=== PATIENT | female | born 1990 | race Caucasian/White ===

== ENCOUNTER 2017-12-25 10:18 | Emergency (ER) | payer OTHER ==
[2017-12-25 10:31] VITALS: BP 115/74; PULSE 90; TEMP 97.9; BMI 22.7
--- NOTE | 2017-12-25 10:34 | PDOC ---
History of Present Illness - General Chief Complaint: Injury Stated Complaint: FALL/INJURY Time Seen by Provider: 12/25/17 10:31 History Source: Patient Exam Limitations: No Limitations - History of Present Illness Initial Comments: 12/25/17 11:59 Patient is a 27-year-old female with no past medical history, who presents to the emergency department today with right foot pain after falling down the steps yesterday at work. Patient states that she slipped down 2 stairs. While she was trying to catch herself, she felt her foot roll under her. Admits to swelling and pain to her right foot. Denies fevers, chills, weakness in the extremity, numbness and tingling to the extremity. Past History - Travel Traveled outside of the country in the last 30 days: No Close contact w/someone who was outside of country & ill: No - Past Medical History Allergies/Adverse Reactions: Allergies Allergy/AdvReac Type Severity Reaction Status Date / Time No Known Allergies Allergy Verified 12/25/17 10:27 Home Medications: Ambulatory Orders NK [No Known Home Medication] 12/25/17 COPD: No - Suicide/Smoking/Psychosocial Hx Smoking History: Current every day smoker Information on smoking cessation initiated: No Review of Systems - Review of Systems Able to Perform ROS?: Yes Comments:: 12/25/17 10:33 CONSTITUTIONAL: Absent: fever, chills, diaphoresis, generalized weakness, malaise, loss of appetite HEENT: Absent: rhinorrhea, nasal congestion, throat pain, throat swelling, difficulty swallowing, mouth swelling, ear pain, eye pain, visual Changes MUSCULOSKELETAL: Present: R foot pain and swelling Absent: myalgia SKIN: Absent: rash, itching, pallor NEUROLOGIC: Absent: headache, focal weakness or paresthesias, dizziness, unsteady gait, seizure, mental status changes, bladder or bowel incontinence PSYCHIATRIC: Absent: anxiety, depression, suicidal or homicidal ideation, hallucinations. Is the patient limited Welsh proficient: No *Physical Exam - Vital Signs Last Vital Signs Temp Pulse Resp BP Pulse Ox 97.9 F 90 16 115/74 98 12/25/17 10:25 12/25/17 10:25 12/25/17 10:25 12/25/17 10:25 12/25/17 10:25 - Physical Exam Comments: 12/25/17 10:33 GENERAL: Well developed, well nourished. Awake and alert. No acute distress. MUSCULOSKELETAL TTP of the lateral R foot along the 5th metatarsal with associated swelling. Pain with eversion of R ankle. (-) squeeze test. Normal range of motion at all joints. No bony deformities or tenderness. No CVA tenderness. EXTREMITIES: No cyanosis. No clubbing. No edema. No calf tenderness. SKIN: Bruising to the R lateral foot. Warm and dry. Normal capillary refill. No rashes. No jaundice. NEUROLOGICAL: Alert, awake, appropriate. Cranial nerves 2-12 intact. No deficits to light touch and temperature in face, upper extremities and lower extremities. No motor deficits in the in face, upper extremities and lower extremities. Normoreflexic in the upper and lower extremities. Normal speech. Toes are down- going bilaterally. Gait is normal without ataxia. PSYCHIATRIC: Cooperative. Good eye contact. Appropriate mood and affect. Medical Decision Making - Medical Decision Making 12/25/17 12:04 Patient is a 27-year-old female with no past medical history, who presents to the emergency department today with right foot pain after falling down the steps yesterday at work. -TTP along the 5th R metatarsal with associated bruising and swelling. PMS intact in the R foot -X-ray of foot and ankle is negative for fracture. No fracture at the base of the 5th metatarsal -Most likely a sprain -MANE wrap and supportive treatment given with ortho follow up -DC home -I discussed the physical exam findings, ancillary test results and final diagnoses with the patient. I answered all of the patient's questions. The patient was satisfied with the care received and felt comfortable with the discharge plan and treatment plan. The Patient agrees to follow up with the primary care physician/specialist within 24-72 hours. Return precautions were given. *DC/Admit/Observation/Transfer Diagnosis at time of Disposition: Right foot sprain Qualifiers: Encounter type: initial encounter Qualified Code(s): S93.601A - Unspecified sprain of right foot, initial encounter - Discharge Dispostion Disposition: HOME Condition at time of disposition: Stable Decision to Admit order: No - Referrals Referrals: Salty Lew MD [Staff Physician] - - Patient Instructions Printed Discharge Instructions: DI for Foot Sprain Additional Instructions: You sprained your foot. Your x-ray was negative for broken bones. Please keep your ankle elevated while at rest above the level of your heart to reduce swelling. You may take Motrin/ibuprofen 600 mg every 6 hours to help reduce pain and swelling. Please ice the area for 20 minute intervals at least 5 times a day to help reduce swelling. Please wear the Mane wrap. Please follow-up with orthopedics in 1 week if your symptoms are not improving. Return to the emergency department if you have worsening pain, or unable to walk , numbness and tingling of the foot, or had any changes in your symptoms. - Post Discharge Activity Forms/Work/School Notes: Back to Work
== END 2017-12-25 12:15 | disposition home or self-care (01) ==
LOC: JERFT 10:18
DX: S93.601A Unspecified sprain of right foot, initial encounter (principal); W10.9XXA Fall (on) (from) unspecified stairs and steps, initial encounter; Y93.89 Activity, other specified; Y92.89 Other specified places as the place of occurrence of the external cause; Y99.0 Civilian activity done for income or pay; F17.210 Nicotine dependence, cigarettes, uncomplicated
CPT/HCPCS: 73610-TC-RT-FY; 73630-TC-RT-FY; 84703; 99281-25

== ENCOUNTER 2018-05-19 09:47 | Emergency (ER) | payer SELFPAY ==
[2018-05-19 10:02] VITALS: BMI 21.1
--- NOTE | 2018-05-19 10:45 | PDOC ---
History of Present Illness <Gissell Mari - Last Filed: 05/19/18 15:00> - History of Present Illness Initial Comments: 05/19/18 11:02 Ms. Bocanegra is a 27 yo female w/ pmh of gastritis who presents for evaluation of 1 week history of abdominal pain with nausea, vomiting, and diarrhea. Patient reports pain has been consistent with her normal gastritis pain however she does not typically have vomiting or diarrhea associated with it. Patient presented to Urgent care on and was given zofran for nausea control which she reported helped her vomiting however she continued to have diarrhea until Saturday. Last BM was on Saturday. Patient also reports decreased appetite since this time. The patient denies chest pain, shortness of breath, headache and dizziness. Denies fever and chills. Denies dysuria, frequency, urgency and hematuria. <Willy Cabral - Last Filed: 05/19/18 17:44> - General Chief Complaint: Pain, Acute Stated Complaint: ABD PAIN Time Seen by Provider: 05/19/18 10:45 Past History <Gissell Mari - Last Filed: 05/19/18 15:00> - Past Medical History COPD: No - Suicide/Smoking/Psychosocial Hx Smoking History: Former smoker Have you smoked in the past 12 months: No Information on smoking cessation initiated: No Hx Alcohol Use: No Drug/Substance Use Hx: No <Willy Cabral - Last Filed: 05/19/18 17:44> - Past Medical History Allergies/Adverse Reactions: Allergies Allergy/AdvReac Type Severity Reaction Status Date / Time No Known Allergies Allergy Verified 12/25/17 10:27 Home Medications: Ambulatory Orders Ciprofloxacin [Cipro -] 500 mg PO Q12H #6 tablet 05/19/18 Metoclopramide HCl [Reglan] 10 mg PO TID PRN #9 tablet 05/19/18 Ondansetron [Zofran -] 4 mg PO PRN 05/19/18 Review of Systems - Review of Systems Comments:: 05/19/18 11:47 GENERAL/CONSTITUTIONAL: No fever or chills. No weakness. HEAD, EYES, EARS, NOSE AND THROAT: No change in vision. No ear pain or discharge. No sore throat. CARDIOVASCULAR: No chest pain or shortness of breath RESPIRATORY: No cough, wheezing, or hemoptysis. GASTROINTESTINAL: +Upper abdominal pain w/ N/V/D as described. GENITOURINARY: No dysuria, frequency, or change in urination. MUSCULOSKELETAL: No joint or muscle swelling or pain. No neck or back pain. SKIN: No rash NEUROLOGIC: No headache, vertigo, loss of consciousness, or change in strength/ sensation. ENDOCRINE: No increased thirst. No abnormal weight change HEMATOLOGIC/LYMPHATIC: No anemia, easy bleeding, or history of blood clots. ALLERGIC/IMMUNOLOGIC: No hives or skin allergy. <Willy Cabral - Last Filed: 05/19/18 17:44> *Physical Exam - Vital Signs Last Vital Signs Temp Pulse Resp BP Pulse Ox 97.9 F 102 H 20 142/71 100 05/19/18 10:00 05/19/18 10:00 05/19/18 10:00 05/19/18 10:00 05/19/18 10:00 <Gissell Mair - Last Filed: 05/19/18 15:00> - Vital Signs Last Vital Signs Temp Pulse Resp BP Pulse Ox 97.9 F 102 H 20 142/71 100 05/19/18 10:00 05/19/18 10:00 05/19/18 10:00 05/19/18 10:00 05/19/18 10:00 - Physical Exam Comments: 05/19/18 11:48 GENERAL: Awake, alert, and fully oriented, in no acute distress HEAD: No signs of trauma, normocephalic, atraumatic EYES: PERRLA, EOMI, sclera anicteric, conjunctiva clear ENT: Auricles normal inspection, hearing grossly normal, nares patent, oropharynx clear without exudates. Moist mucosa NECK: Normal ROM, supple, no lymphadenopathy, JVD, or masses LUNGS: No distress, speaks full sentences, clear to auscultation bilaterally HEART: Regular rate and rhythm, normal S1 and S2, no murmurs, rubs or gallops, peripheral pulses normal and equal bilaterally. ABDOMEN: +Epigastric and RLQ w/ LLQ rebound TTP. Soft, Normoactive bowel sounds. No guarding, no rebound. No masses EXTREMITIES: Normal inspection, Normal range of motion, no edema. No clubbing or cyanosis. NEUROLOGICAL: Cranial nerves II through XII grossly intact. Normal speech, normal gait, no focal sensorimotor deficits SKIN: Warm, Dry, normal turgor, no rashes or lesions noted. <Willy Cabral - Last Filed: 05/19/18 17:44> Moderate Sedation - Procedure Monitoring Vital Signs: Procedure Monitoring Vital Signs Temperature 97.9 F 05/19/18 10:00 Pulse Rate 102 H 05/19/18 10:00 Respiratory Rate 20 05/19/18 10:00 Blood Pressure 142/71 05/19/18 10:00 O2 Sat by Pulse Oximetry (%) 100 05/19/18 10:00 <Gissell Mari - Last Filed: 05/19/18 15:00> - Procedure Monitoring Vital Signs: Procedure Monitoring Vital Signs Temperature 97.9 F 05/19/18 10:00 Pulse Rate 102 H 05/19/18 10:00 Respiratory Rate 20 05/19/18 10:00 Blood Pressure 142/71 05/19/18 10:00 O2 Sat by Pulse Oximetry (%) 100 05/19/18 10:00 <Willy Cabral - Last Filed: 05/19/18 17:44> ED Treatment Course - LABORATORY CBC & Chemistry Diagram: 05/19/18 11:19 05/19/18 11:19 - ADDITIONAL ORDERS Additional order review: Laboratory Results 05/19/18 05/19/18 11:40 11:19 Sodium 140 Potassium 4.3 Chloride 111 H Carbon Dioxide 23 Anion Gap 6 L BUN 12 Creatinine 0.7 Creat Clearance w eGFR > 60 Random Glucose 86 Calcium 8.8 Total Bilirubin 0.4 AST 18 ALT 20 Alkaline Phosphatase 61 Total Protein 8.0 Albumin 4.1 Lipase 314 Urine Color Yellow Urine Appearance Clear Urine pH 7.5 Ur Specific [place] 1.015 Urine Protein Negative Urine Glucose (UA) Negative Urine Ketones Negative Urine Blood Negative Urine Nitrite Negative Urine Bilirubin Negative Urine Urobilinogen 0.2 Ur Leukocyte Esterase Negative Urine HCG, Qual Negative 05/19/18 11:19 RBC 3.97 MCV 99.1 H MCHC 34.2 RDW 14.3 MPV 9.9 Neutrophils % 75.7 Lymphocytes % 18.5 Monocytes % 4.7 Eosinophils % 0.4 Basophils % 0.7 - Medications Given in the ED: ED Medications Discontinued Medications Generic Name Dose Route Start Last Admin Trade Name Freq PRN Reason Stop Dose Admin Famotidine/Sodium Chloride 20 mg in 50 mls @ 100 mls/hr 05/19/18 11:11 11:30 Pepcid 20 Mg Premixed Ivpb - IVPB 05/19/18 11:40 100 mls/hr ONCE ONE Administration Sodium Chloride 1,000 mls @ 1,000 mls/hr 05/19/18 11:11 05/19/18 11:30 Normal Saline - IV 05/19/18 12:10 1,000 mls/hr ASDIR STA Administration <Gissell Mari - Last Filed: 05/19/18 15:00> - LABORATORY CBC & Chemistry Diagram: 05/19/18 11:19 05/19/18 11:19 <Willy Cabral - Last Filed: 05/19/18 17:44> Medical Decision Making - Medical Decision Making 05/19/18 17:38 Ms. Bocanegra is a 27 yo female w/ pmh as described who presents for evaluation of symptoms concerning for SBO vs. colon cancer vs. viral gastritis. Patient labs grossly wnl as below. Patient evaluated with CT abdomen/pelvis with IV/Oral contrast with no concerning findings. Patient symptoms improved with reglan and fluids. Discharging patient to home w/ Rx for cipro and reglan for prophylaxis. Discussed return precautions and patient will follow-up as needed. No concern for acute process at this time. Laboratory Results - last 24 hr 05/19/18 05/19/18 05/19/18 11:19 11:19 11:40 WBC 8.2 RBC 3.97 Hgb 13.5 Hct 39.3 MCV 99.1 H MCH 33.9 H MCHC 34.2 RDW 14.3 Plt Count 249 MPV 9.9 Absolute Neuts (auto) 6.2 Neutrophils % 75.7 Lymphocytes % 18.5 Monocytes % 4.7 Eosinophils % 0.4 Basophils % 0.7 Nucleated RBC % 0 Sodium 140 Potassium 4.3 Chloride 111 H Carbon Dioxide 23 Anion Gap 6 L BUN 12 Creatinine 0.7 Creat Clearance w eGFR > 60 Random Glucose 86 Calcium 8.8 Total Bilirubin 0.4 AST 18 ALT 20 Alkaline Phosphatase 61 Total Protein 8.0 Albumin 4.1 Lipase 314 Urine Color Yellow Urine Appearance Clear Urine pH 7.5 Ur Specific [place] 1.015 Urine Protein Negative Urine Glucose (UA) Negative Urine Ketones Negative Urine Blood Negative Urine Nitrite Negative Urine Bilirubin Negative Urine Urobilinogen 0.2 Ur Leukocyte Esterase Negative Urine HCG, Qual Negative <Willy Cabral - Last Filed: 05/19/18 17:44> *DC/Admit/Observation/Transfer <Gissell Mari - Last Filed: 05/19/18 15:00> <WyattmarianneWilly - Last Filed: 05/19/18 17:44> Diagnosis at time of Disposition: Abdominal pain Qualifiers: Abdominal location: unspecified location Qualified Code(s): R10.9 - Unspecified abdominal pain - Discharge Dispostion Disposition: HOME - Prescriptions Prescriptions: Ciprofloxacin [Cipro -] 500 mg PO Q12H #6 tablet Metoclopramide HCl [Reglan] 10 mg PO TID PRN #9 tablet PRN Reason: Nausea - Patient Instructions Printed Discharge Instructions: DI for Abdominal Pain-Adult Additional Instructions: You were evaluated today in the ER for your abdominal pain. We evaluated you with labs as well as CT scan with no concerning findings. We sent antibiotics and nausea medication to your pharmacy. Take all medications as proscribed. Please follow-up with primary care provider in 1-2 days for further evaluation. Return to ER if any failure of symptoms to improve, fever, chills, increased pain, or other concerning developments. We hope you feel better soon.
[2018-05-19] MEDS ORDERED: FAMOTIDINE 20 MG/50 ML IVPB 20 MG/50 ML MG IVPB ONE ×2 (11:11→11:22)
[2018-05-19] MEDS ORDERED: SODIUM CHLORIDE 1,000 ML IV STA (11:11)
[2018-05-19 11:52] LABS: BASO % 0.7 % (0-2.0); EOS % 0.4 % (0-4.5); HEMATOCRIT 39.3 % (32.4-45.2); HEMOGLOBIN 13.5 GM/dL (10.7-15.3); LYMPH % 18.5 % (8-40); MCH 33.9 pg (25.7-33.7); MCHC 34.2 g/dl (32.0-36.0); MEAN CELL VOLUME 99.1 fl (80-96); MEAN PLT VOLUME 9.9 fl (7.5-11.1); MONO % 4.7 % (3.8-10.2); NEUT % 75.7 % (42.8-82.8); PLATELET COUNT 249 K/MM3 (134-434); RBC 3.97 M/mm3 (3.60-5.2); RDW 14.3 % (11.6-15.6); WHITE BLOOD COUNT 8.2 K/mm3 (4.0-10.0)
[2018-05-19 12:01] LABS: HCG,QUALITATIVE URINE Negative
[2018-05-19 12:36] LABS: ALBUMIN 4.1 g/dl (3.4-5.0); ALK PHOS 61 U/L (45-117); ANION GAP 6 MMOL/L (8-16); BILIRUBIN,TOTAL 0.4 mg/dL (0.2-1); BLOOD UREA NITROGEN 12 mg/dL (7-18); CALCIUM 8.8 mg/dL (8.5-10.1); CHLORIDE 111 mmol/L (98-107); CO2 23 mmol/L (21-32); CREATININE 0.7 mg/dL (0.55-1.3); GLUCOSE,RANDOM 86 mg/dL (74-106); LIPASE 314 U/L (73-393); POTASSIUM 4.3 mmol/L (3.5-5.1); SGOT/AST 18 U/L (15-37); SGPT/ALT 20 U/L (13-61); SODIUM 140 mmol/L (136-145)
--- NOTE | 2018-05-19 12:43 | PDOC ---
Attending Attestation - Resident Resident Name: GarryfitomarianneRazWilly - ED Attending Attestation I have performed the following: I have examined & evaluated the patient, The case was reviewed & discussed with the resident, I agree w/resident's findings & plan - HPI HPI: 05/19/18 15:59 27 YOF with h/o gastritis p/w 1 week of n/v/d. non bloody. no recent abx use +fam history of colon ca in mother. She get yearly colonoscopy - last one normal and EGD with +gastritis. 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 she admits to eating eggs prior to onset of symptoms but no other sick contacts with similar sx. 05/19/18 15:59 05/19/18 16:01 - Physicial Exam PE: 05/19/18 15:59 NAD, well appearing, PERRL, EOMI, MMM, nl conjunctiva, anicteric; neck supple. lungs clear, RRR, abdomen soft diffuse TTP particularly over epigastrium; no rebound or guarding. no CVAT. CUMMINS x4, no focal neuro deficits. No peripheral edema. normal color for ethnicity, WWP. - Medical Decision Making 05/19/18 12:43 See HPI for details DDx abdominal pain: Renal colic, biliary colic, metabolic/electrolyte derangements. GERD, PUD, esophageal spasm, pancreatitis, hepatitis, constipation , colitis, gastroenteritis, food poisoning cholecystitis, UTI, pyelonephritis, ileus, SBO, medication side effect, hernia, appendicitis, diverticulitis, Vital signs reviewed, mild tachy 102 bpm, otherwise wnl Prior notes reviewed, including admissions, discharges and consultations. laboratory results and imaging reviewed, basic labs and lytes wnl, notable for normal UA, neg preg test. normal lipase /LFTs EKG normal sinus rhythm, no interval abnormalities, narrow QRS, ST and T wave segments and morphology normal. Nonspecific T wave abnormalities ED course - given GI cocktail, analgesia effect, mylanta and bentyl, with effect. -CT a/p with contrast to r/o mass/lesion for etiology of sx _ results with no acute pathology, no e/o mass or diverticulitis or appx, normal intestines and liver/pancreas/GB could also be viral syndrome vs gastroenteritis vs food poisoning, considered salmonella but has not made stool sample to send for sampling. recommended supportive care, short course abx given persistent sx x 1 week for possible infection with egg ingestion that preceded sx, cipro x 3 days. hydration and rest advised rx reglan prn for n/v symptoms, The patient appears comfortable and states that pain is improved. Tolerating oral intake - juice given. Vital signs reviewed and are normal. On repeat physical exam, the abdomen is soft and nontender, no suggestive findings for acute abdominal process at this time. All diagnostics tests reviewed and discussed with the patient. Dispo: Pt informed of my clinical impression, treatment recommendations and disposition plan. All questions answered to patient's satisfaction and expressed understanding and comfort with this. Reasons for returning to the ED sooner discussed with the patient otherwise, follow up with primary care physician. At the time of discharge, the patient is alert, clinically improved, tolerating po and verbalizes understanding of instructions. Patient does not suffer from an acute life-threatening medical condition at this time she is safe for outpatient follow-up. encouraged her GI followup for surveillance, colonoscopy/EGDs. 05/19/18 16:00 05/19/18 17:33 05/19/18 17:34
[2018-05-19 14:08] LABS: PH,URINE 7.5 (5.0-8.0); URINE APPEARANCE Clear; URINE BILIRUBIN Negative (<2.0 mg/dL); URINE COLOR Yellow; URINE GLUCOSE (UA) Negative (NEGATIVE); URINE KETONE Negative (NEGATIVE); URINE LEUK ESTERASE Negative (NEGATIVE); URINE NITRITE Negative (NEGATIVE); URINE PROTEIN Negative (NEGATIVE); URINE UROBILINOGEN 0.2 mg/dL (0.2-1.0)
[2018-05-19] MEDS ORDERED: DICYCLOMINE HCL 20 MG TABLET PO ONE (15:58)
[2018-05-19] MEDS ORDERED: MAG HYDROX/AL HYDROX/SIMETH 30 ML UNIT-DOSE CUP PO ONE (15:58)
[2018-05-19] MEDS ORDERED: MAG HYDROX/AL HYDROX/SIMETH 30 ML UNIT-DOSE CUP ONE (16:17)
[2018-05-19] MEDS ORDERED: DICYCLOMINE HCL 10 MG CAPSULE ONE (16:17)
[2018-05-19] MEDS ORDERED: METOCLOPRAMIDE HCL INJECTION 10 MG/2 ML VIAL IVPUSH ONE (16:40)
[2018-05-19] MEDS ORDERED: METOCLOPRAMIDE HCL INJECTION 10 MG/2 ML VIAL ONE (17:04)
[2018-05-19 17:53] VITALS: BP 114/66; PULSE 67; TEMP 98.2
== END 2018-05-19 18:05 | disposition home or self-care (01) ==
LOC: JER 09:47
PROC: 3E033GC Introduction of Other Therapeutic Substance into Peripheral Vein, Percutaneous Approach (ICD-10-PCS; principal; 2018-05-19)
PROC: 3E033GC Introduction of Other Therapeutic Substance into Peripheral Vein, Percutaneous Approach (ICD-10-PCS; 2018-05-19)
DX: R10.10 Upper abdominal pain, unspecified (principal)
CPT/HCPCS: 36415; 74177-TC; 80053; 81003; 83690; 84703; 85025; 87086; 87186; 99282-25; J7030; Q9967